=== PATIENT | female | born 1985 | race American Indian/Alaskan Native ===

== ENCOUNTER 2018-02-11 19:12 | Emergency (ER) | payer MEDICAID ==
[2018-02-11 19:34] VITALS: BMI 29.2
[2018-02-11 19:46] VITALS: TEMP 98.3
--- NOTE | 2018-02-11 20:09 | ED PDOC ---
Arrival/HPI - General Chief Complaint: Female Genitourinary Time Seen by Provider: 02/11/18 19:20 Historian: Patient - History of Present Illness Narrative History of Present Illness (Text): 02/11/18 19:50 Edna Lira is a 32 year old female, whose past medical history includes asthma, who presents to the Emergency department complaining of cramp-like abdominal discomfort and vaginal spotting. Patient thinks she might be , notes her last regular menstrual period was in September 2017. If , patient would P:1. Patient denies any nausea, vomiting, diarrhea, fever, chills, urinary symptoms, or any other complaints. Symptom Onset: Gradual Symptom Course: Unchanged Activities at Onset: Light Context: Home Past Medical History - Provider Review Nursing Documentation Reviewed: Yes - Cardiac Hx Cardiac Disorders: No - Pulmonary Hx Respiratory Disorders: Yes Hx Asthma: Yes - Psychiatric Hx Substance Use: No - Surgical History Other/Comment: Left Ankle Surgery - 2014 Family/Social History - Physician Review Nursing Documentation Reviewed: Yes Family/Social History: Unknown Family HX Smoking Status: Former Smoker Hx Alcohol Use: No Hx Substance Use: No Allergies/Home Meds Allergies/Adverse Reactions: Allergies No Known Allergies Allergy (Verified 02/11/18 19:33) Review of Systems - Physician Review All systems were reviewed & negative as marked: Yes - Review of Systems Constitutional: Normal. absent: Fevers Eyes: Normal ENT: Normal Respiratory: Normal. absent: SOB, Cough Cardiovascular: Normal. absent: Chest Pain Gastrointestinal: Abdominal Pain. absent: Diarrhea, Vomiting Genitourinary Female: Vaginal Bleeding Musculoskeletal: Normal. absent: Back Pain, Neck Pain Skin: Normal. absent: Rash Neurological: Normal. absent: Headache, Dizziness Endocrine: Normal Hemo/Lymphatic: Normal Psychiatric: Normal Physical Exam Vital Signs Reviewed: Yes Vital Signs Temp Pulse Resp BP Pulse Ox 02/11/18 19:33 98.3 F 87 17 115/77 99 Temperature: Afebrile Blood Pressure: Normal Pulse: Regular Respiratory Rate: Normal Appearance: Positive for: Well-Appearing, Non-Toxic, Comfortable Pain Distress: None Mental Status: Positive for: Alert and Oriented X 3 - Systems Exam Head: Present: Atraumatic, Normocephalic Pupils: Present: PERRL Extroacular Muscles: Present: EOMI Conjunctiva: Present: Normal Mouth: Present: Moist Mucous Membranes Neck: Present: Normal Range of Motion Respiratory/Chest: Present: Clear to Auscultation, Good Air Exchange. No: Respiratory Distress, Accessory Muscle Use Cardiovascular: Present: Regular Rate and Rhythm, Normal S1, S2. No: Murmurs Abdomen: No: Tenderness, Distention, Peritoneal Signs Genitourinary/Pelvic Exam: Present: Normal External Genitalia, Vaginal Bleeding (Scanty amount of blood in vaginal introitus), Cervical os Closed Back: Present: Normal Inspection Upper Extremity: Present: Normal Inspection. No: Cyanosis, Edema Lower Extremity: Present: Normal Inspection. No: Edema Neurological: Present: GCS=15, CN II-XII Intact, Speech Normal Skin: Present: Warm, Dry, Normal Color. No: Rashes Psychiatric: Present: Alert, Oriented x 3, Normal Insight, Normal Concentration Medical Decision Making ED Course and Treatment: 02/11/18 19:50 Impression: 32 year old female complaining of cramping abdominal discomfort and vaginal spotting. Plan: -- Transvaginal US -- Labs, Beta-HCG, blood type and screen -- Urinalysis -- Reassess and disposition Progress Notes: 02/11/18 22:33 Transvaginal US: Uterus Gestational sac diameter equivalent to 7 wks/1 day gestation Yolk sac measures 0.46 cm. No pole is identified. No heart motion is detected. Uterus measures 8.9 x 5.3 x 5 cm. Retroverted. No mass. Cervix Long and closed measuring 3.1 cm. No cervical abnormality seen. Right Ovary Measures 3.3 x 2.5 x 3 cm. No mass. Normal flow. Left Ovary Measures 2.8 x 1.6 x 2.4 cm. No mass. Normal flow. Free Fluid None. Other Findings None. Impression 1. Irregular gestational sac consistent with 7 weeks 1 day gestation. 2. No pole or cardiac activity identified. This is compatible with missed / demise. Electronically signed on Feb 11, 2018 9:52:41 PM EST by: Terrence Larkin M.D., [facility] Certified By [facility] [employer] Trained MRI and CT Specialist 02/11/18 23:06 Pelvic exam performed, scanty amount of blood in vaginal introitus. Cervical os closed. Case discussed with Dr. Gann OBGYSheryl electronic masking system operator, who states pt can follow-up in her office tomorrow. Pt states she will f/u with Dr. Gann at her office. Patient was instructed to return if symptoms worsen or new concerning symptoms arise. - Lab Interpretations I have reviewed the lab results: Yes - RAD Interpretation Radiology Orders: 02/11/18 19:56 TRANSVAGINAL [US] Stat Bee Producer: Radiologist - Scribe Statement The provider has reviewed the documentation as recorded by the Scribe Vivi Judge Provider Scribe Attestation: All medical record entries made by the Scribe were at my direction and personally dictated by me. I have reviewed the chart and agree that the record accurately reflects my personal performance of the history, physical exam, medical decision making, and the department course for this patient. I have also personally directed, reviewed, and agree with the discharge instructions and disposition. Disposition/Present on Arrival - Present on Arrival Any Indicators Present on Arrival: No History of DVT/PE: No History of Uncontrolled Diabetes: No Urinary Catheter: No History of Decub. Ulcer: No History Surgical Site Infection Following: None - Disposition Have Diagnosis and Disposition been Completed?: Yes Diagnosis: Missed with demise before 20 completed weeks of gestation Disposition: HOME/ ROUTINE Disposition Time: 23:44 Patient Plan: Discharge Patient Problems: Current Active Problems Problem Status Onset Missed with demise before 20 completed weeks of gestation Acute Condition: GOOD Discharge Instructions (ExitCare): Miscarriage (DC) Additional Instructions: Take meds as prescribed/follow up with Dr.Scheff garnica/any worsening symptoms return to the emergency room Prescriptions: Hydrocodone/Ibuprofen [Hydrocodone-Ibuprofen 5-200 mg] 1 each PO Q4 PRN #16 tablet PRN Reason: Pain, Moderate (4-7) Referrals: Abby Gann MD [Staff Provider] - Follow up with primary Forms: [employer] (Salvadorean)
[2018-02-11 20:12] LABS: HEMOGLOBIN 13.7 g/dL (12.0-16.0); MEAN CELL VOLUME 89.4 fl (80.0-105.0); MEAN CORPUSCULAR HEMOGLOBIN 29.7 pg (25.0-35.0); MEAN CORPUSCULAR HGB CONC 33.3 g/dl (31.0-37.0); MEAN PLATELET VOLUME 10.5 fl (7.0-11.0); RBC 4.61 10^6/uL (3.5-6.1); RED CELL DISTRIBUTION WIDTH 12.3 % (11.5-14.5); WHITE BLOOD COUNT 9.5 10^3/uL (4.5-11.0)
[2018-02-11 20:13] LABS: URINE APPEARANCE CLEAR (CLEAR); URINE BILIRUBIN NEGATIVE (NEGATIVE); URINE BLOOD LARGE (NEGATIVE); URINE COLOR YELLOW (YELLOW); URINE GLUCOSE (UA) NEGATIVE (NEGATIVE); URINE LEUKOCYTE ESTERASE NEGATIVE Leu/uL (NEGATIVE); URINE PROTEIN NEGATIVE mg/dL (<30 mg/dL); URINE UROBILINOGEN 0.2 E.U./dL (<1 E.U./dL)
[2018-02-11 20:27] LABS: ALB/GLOB RATIO 1.3 (1.1-1.8); ALBUMIN 4.2 g/dL (3.0-4.8); ALT/SGPT 31 U/L (7-56); AST/SGOT 27 U/L (14-36); BLOOD UREA NITROGEN 11 mg/dL (7-21); CALCIUM 9.4 mg/dL (8.4-10.5); GFR NON-AFRICAN AMERICAN > 60
[2018-02-11 20:29] LABS: URINE RBC TNTC /hpf (0-2); URINE WBC 0 - 2 /hpf (0-6)
[2018-02-11 20:30] LABS: URINE BACTERIA NEG /hpf
[2018-02-12 00:32] VITALS: BP 118/74; PULSE 89; RESP 18; O2SAT 100
--- NOTE | 2018-02-12 09:46 | US ---
Date of service: 02/11/2018 PROCEDURE: Limited ultrasound HISTORY: pain/vaginal bleed Positive test concurrent with this study. COMPARISON: None TECHNIQUE: Standard protocol for this study/examination. FINDINGS: LMP: 09/17/2017 Prior examinations from the current : None TECHNIQUE: Real-time 2D imaging, duplex and color Doppler. FINDINGS: No pole identified. Gestational age 7 weeks 1 day based on gestational sac measurement 2.44 cm Gestational age derived from LMP: 21 weeks JAE based on LMP: 06/24/2018 JAE based on biometry: 09/29/2018 Gestational concordance not apparent. Yolk sac identified Cervix: No Cervical abnormalities: Negative examination for cervical dilatation or effacement. Closed cervix measuring 3.13 cm Subchorionic hemorrhage: None UTERUS: 5.3 x 5 x 8.9 cm. ADNEXA: Right: 2.5 x 3.4 x 3.0 cm. Normal Doppler arterial waveform documented. Left: 1.6 x 2.9 x 2.4 cm. Normal Doppler arterial waveform documented Fluid in the cul-de-sac: None. IMPRESSION: Seven weeks intrauterine gestation. This is based on gestational sac measurement only. No pole identified. The Concordant findings (preliminary report) provided by [facility].
== END 2018-02-12 | disposition home or self-care (01) ==
LOC: ED 19:12
DX: O02.1 Missed abortion (principal); Z3A.01 Less than 8 weeks gestation of pregnancy